=== PATIENT | male | born 1955 | race Caucasian/White ===

== ENCOUNTER → 2022-06-17 | Outpatient (CLI) | payer MEDICARE ==
--- NOTE | 2022-06-17 15:25 | XR ---
EXAMINATION TYPE: XR shoulder complete RT DATE OF EXAM: 06/17/2022 CLINICAL HISTORY: pain TECHNIQUE: Three views of the right shoulder are obtained. COMPARISON: None FINDINGS: There is no acute fracture/dislocation evident. The acromioclavicular and glenohumeral donnie int spaces appear within normal limits. The visualized ribs are intact and unremarkable. IMPRESSION: 1. There is no acute fracture or dislocation. ICD 10 NO FRACTURE, INITIAL EVALUATION
== END | disposition home or self-care (01) ==
LOC: RADXRYALE 14:59
PROVIDERS: ATTEND Physician Assistant
DX: M25.511 Pain in right shoulder (principal)

== ENCOUNTER 2023-11-07 12:29 | Emergency (ER) | payer MEDICARE ==
--- NOTE | 2023-11-07 13:15 | XR ---
EXAMINATION TYPE: XR chest 2V DATE OF EXAM: 11/07/2023 COMPARISON: None HISTORY: 68-year-old male cough, difficulty breathing, shortness of breath TECHNIQUE: PA and lateral views FINDINGS: The cardiomediastinal silhouette, aorta, and pulmonary vasculature are within normal limits. Some str edin atelectasis in the lower lungs. Otherwise, lungs and pleural spaces are clear. IMPRESSION: Some strandy basilar atelectasis. Otherwise, no acute cardiopulmonary process.
--- NOTE | 2023-11-07 13:26 | ED ---
URI HPI - General Source: patient, RN notes reviewed Mode of arrival: ambulatory Limitations: no limitations - History of Present Illness MD Complaint: cough, nasal congestion <Tammi Morales - Last Filed: 11/07/23 13:23> <Royal Coon - Last Filed: 11/07/23 14:29> - General Chief Complaint: Upper Respiratory Infection Stated Complaint: fever,headache,dizzy Time Seen by Provider: 11/07/23 13:23 - History of Present Illness Initial Comments: This is a 16-year-old male who presents to the emergency department for upper respiratory symptoms. Reports fevers, body aches, coughing and congestion. States that he has also started to feel dizzy and has headaches. Unsure how high his fever has gotten. Denies any sick contacts. (Tammi Morales) - Related Data Previous Rx's Medication Instructions Recorded Nirmatrelvir/Ritonavir [Paxlovid 1 each PO DIRECTED #1 each 11/07/23 300-100 mg Pack (Eua)] Allergies Allergy/AdvReac Type Severity Reaction Status Date / Time No Known Allergies Allergy Verified 11/07/23 12:50 Review of Systems ROS Other: All systems not noted in ROS Statement are negative. <Tammi Morales - Last Filed: 11/07/23 13:23> ROS Other: All systems not noted in ROS Statement are negative. <Royal Coon - Last Filed: 11/07/23 14:29> ROS Statement: Those systems with pertinent positive or pertinent negative responses have been documented in the HPI. Past Medical History History of Any Multi-Drug Resistant Organisms: None Reported Past Psychological History: No Psychological Hx Reported Smoking Status: Former smoker Past Alcohol Use History: Rare Past Drug Use History: None Reported <Tammi Morales - Last Filed: 11/07/23 13:23> General Exam Limitations: no limitations <Tammi Morales - Last Filed: 11/07/23 13:23> General appearance: alert, in no apparent distress Head exam: Present: atraumatic, normocephalic Eye exam: Present: normal appearance, PERRL ENT exam: Present: normal exam Neck exam: Present: normal inspection. Absent: tenderness, meningismus Respiratory exam: Present: normal lung sounds bilaterally. Absent: respiratory distress, wheezes, rales Cardiovascular Exam: Present: regular rate, normal rhythm GI/Abdominal exam: Present: soft. Absent: distended, tenderness Extremities exam: Present: normal inspection Neurological exam: Present: alert, oriented X3, CN II-XII intact. Absent: motor sensory deficit Psychiatric exam: Present: normal affect, normal mood Skin exam: Present: warm, dry, intact <Royal Coon - Last Filed: 11/07/23 14:29> - General Exam Comments Initial Comments: Visual Physical Exam Vital signs reviewed General: Well-appearing, nontoxic, no acute distress. Head: Normocephalic, atraumatic Eyes: PERRLA, EOMI ENT: Airway patent Chest: Nonlabored breathing Skin: No visual rash, normal skin tone Neuro: Alert and oriented 3 Musculoskeletal: No gross abnormalities (Tammi Morales) Course Vital Signs 11/07/23 12:45 Temperature 99.1 F Pulse Rate 103 H Respiratory 18 Rate Blood Pressure 117/72 O2 Sat by Pulse 93 L Oximetry Medical Decision Making <Tammi Morales - Last Filed: 11/07/23 13:23> <Royal Coon - Last Filed: 11/07/23 14:29> - Medical Decision Making I performed the QuickNote portion of this chart. Signed Tammi Morales PA-C. (Tammi Morales) Was pt. sent in by a medical professional or institution ([facility], WASH OIL PUMP OPERATOR, urgent care, hospital, or alf...) When possible be specific @ -No Did you speak to anyone other than the patient for history (EMS, parent, family, police, friend...)? What history was obtained from this source @ -No Did you review nursing and triage notes (agree or disagree)? Why? @ -I reviewed and agree with nursing and triage notes Were old charts reviewed (outside hosp., previous admission, EMS record, old EKG, old radiological studies, urgent care reports/EKG's, alf records)? Report findings @ -No old charts were reviewed Differential Diagnosis (chest pain, altered mental status, abdominal pain women, abdominal pain men, vaginal bleeding, weakness, fever, dyspnea, syncope, headache, dizziness, GI bleed, back pain, seizure, CVA, palpatations, mental health, musculoskeletal)? @ -not applicable EKG interpreted by me (3pts min.). @ -As above X-rays interpreted by me (1pt min.). @ -[Chest x-ray negative for focal pneumonia, no pneumothorax, no acute findings CT interpreted by me (1pt min.). @ -None done U/S interpreted by me (1pt. min.). @ -None done What testing was considered but not performed or refused? (CT, X-rays, U/S, labs)? Why? @ -None What meds were considered but not given or refused? Why? @ -None Did you discuss the management of the patient with other professionals (professionals i.e. , PA, WASH OIL PUMP OPERATOR, lab, RT, psych nurse, social services aide, lawyer real estate, teacher, traffic maintenance officer, case management associate)? Give summary @ -No Was smoking cessation discussed for >3mins.? @ -No Was critical care preformed (if so, how long)? @ -No Were there social determinants of health that impacted care today? How? (Homelessness, low income, unemployed, alcoholism, drug addiction, transportation, low edu. Level, literacy, decrease access to med. care, penitentiary, rehab)? @ -No Was there de-escalation of care discussed even if they declined (Discuss DNR or withdrawal of care, Hospice)? DNR status @ -No What co-morbidities impacted this encounter? (DM, HTN, Smoking, COPD, CAD, Cancer, CVA, ARF, Chemo, Hep., AIDS, mental health diagnosis, sleep apnea, morbid obesity)? @ -None Was patient admitted / discharged? Hospital course, mention meds given and route, prescriptions, significant lab abnormalities, going to OR and other pertinent info. @ -68-year-old male with cough cold, fever, myalgia. Patient has positive for coronavirus. No respiratory distress, no hypoxia. Patient stable for discharge with oral antivirals. Return parameters discussed. Undiagnosed new problem with uncertain prognosis? @ -No Drug Therapy requiring intensive monitoring for toxicity (Heparin, Nitro, Insulin, Cardizem)? @ -No Were any procedures done? @ -No Diagnosis/symptom? @ -COVID-19 Acute, or Chronic, or Acute on Chronic? @ -Acute Uncomplicated (without systemic symptoms) or Complicated (systemic symptoms)? @ -default Side effects of treatment? @ -No Exacerbation, Progression, or Severe Exacerbation? @ -No Poses a threat to life or bodily function? How? (Chest pain, [place], [place], pneumonia, PE, COPD, DKA, ARF, appy, cholecystitis, CVA, Diverticulitis, Homicidal, Suicidal, threat to staff... and all critical care pts) @ -[Low risk at this time (Royal Coon) - Lab Data Lab Results 11/07/23 Range/Units 13:15 Influenza Type A (PCR) Not Detected (Not Detectd) Influenza Type B (PCR) Not Detected (Not Detectd) RSV (PCR) Not Detected (Not Detectd) SARS-CoV-2 (PCR) Detected A (Not Detectd) Disposition <Tammi Morales - Last Filed: 11/07/23 13:23> Is patient prescribed a controlled substance at d/c from ED?: No Time of Disposition: 14:26 <Royal Coon - Last Filed: 11/07/23 14:29> Clinical Impression: COVID-19 Disposition: HOME SELF-CARE Condition: Fair Instructions (If sedation given, give patient instructions): COVID-19 (Coronavirus Disease 2019) (ED) Prescriptions: Nirmatrelvir/Ritonavir [Paxlovid 300-100 mg Pack (Eua)] 1 each PO DIRECTED #1 each Referrals: Yani Joe, PAC [Primary Care Provider] - 1-2 days
[2023-11-07 16:26] VITALS: BP 120/63; PULSE 92; RESP 20; TEMP 99.2
== END 2023-11-07 14:40 | disposition home or self-care (01) ==
LOC: EC 12:29
DX: U07.1 COVID-19 (principal); Z87.891 Personal history of nicotine dependence
CPT/HCPCS: 71046; 87636; 99284